=== PATIENT | male | born 1950 | race Caucasian/White ===

== ENCOUNTER 2018-07-16 12:13 | Observation (INO) | payer MEDICARE ==
[~2018-07-16] VITALS: Ht 190.5 cm; Wt 112.5 kg
[2018-07-16] MEDS ORDERED: IPRATROPIUM BROMIDE 0.02% 2.5 ML NEB NEB STA (12:23)
[2018-07-16] MEDS ORDERED: METHYLPREDNISOLONE SOD SUCC 125 MG/2ML VIAL IV STA (12:23)
[2018-07-16] MEDS ORDERED: ALBUTEROL SULF 0.083% NEB SOLN 3 ML NEB NEB STA (12:23)
[2018-07-16] MEDS ORDERED: CEFTRIAXONE SOD 1 GM/NS 50 ML 50 ML IV STA (12:27)
[2018-07-16] MEDS ORDERED: AZITHROMYCIN 500MG/NS 250 ML 250 ML IV STA (12:27)
[2018-07-16] MEDS ORDERED: ASPIRIN 81 MG CHEW TAB PO ONE (12:30)
--- NOTE | 2018-07-16 13:15 | Diagnostic Imaging Report ---
EXAMINATION: PA and lateral views of the chest. COMPARISON: None CLINICAL HISTORY: Cough, shortness of breath DISCUSSION: Lines/tubes: None. Lungs: The lungs are well inflated and clear. No pneumonia or pulmonary edema. Pleura: No pleural effusion or pneumothorax. Heart and mediastinum: The cardiomediastinal silhouette is normal. Bones and soft tissues: No acute bony abnormalities. Remote right-sided rib fractures. IMPRESSION: No acute cardiopulmonary abnormalities. Signed by: Dr. Db Watson M.D. on 07/16/2018 1:11 PM
[2018-07-16 13:34] LABS: BASOPHILS # (AUTO) 0.1 (0.0-0.1); BASOPHILS % 1.3 % (0.0-1.0); EOSINOPHILS # (AUTO) 0.2 (0.0-0.4); EOSINOPHILS % 3.8 % (0.0-6.0); HEMATOCRIT 45.9 % (38.2-49.6); HEMOGLOBIN 15.1 g/dL (14.0-18.0); LYMPHOCYTES # (AUTO) 0.8 (1.0-3.2); LYMPHOCYTES % 15.1 % (18.0-39.1); MEAN CORPUSCULAR HEMOGLOBIN 31.6 pg (28-32); MEAN CORPUSCULAR HGB CONC 32.9 g/dL (31-35); MONOCYTES # (AUTO) 0.3 (0.2-0.8); MONOCYTES % 6.2 % (4.4-11.3); NEUTROPHILS # (AUTO) 3.9 (2.1-6.9); NEUTROPHILS % 73.2 % (38.7-80.0); PLATELET COUNT 282 x10e3/uL (140-360); RED BLOOD COUNT 4.78 x10e6/uL (4.3-5.7); RED CELL DISTRIBUTION WIDTH 13.4 % (11.7-14.4)
[2018-07-16 13:41] LABS: BILIRUBIN,URINE NEGATIVE (NEGATIVE); CLARITY,URINE SL CLOUDY (CLEAR); COLOR,URINE YELLOW (YELLOW); KETONES,URINE TRACE (NEGATIVE); LEUKOCYTE ESTERASE ,URINE NEGATIVE (NEGATIVE); NITRITE,URINE NEGATIVE (NEGATIVE); PROTEIN,URINE DIPSTICK NEGATIVE (NEGATIVE); URINE UROBILINOGEN 0.2 mg/dL (0.2 - 1)
[2018-07-16 13:44] LABS: INR 0.9; PARTIAL THROMBOPLASTIN TIME 30.3 seconds (23.8-35.5); PROTHROMBIN TIME 12.6 seconds (11.9-14.5)
[2018-07-16 13:50] LABS: BACTERIA,URINE MODERATE /HPF; EPITHELIAL CELLS,URINE MANY /LPF; MUCUS,URINE MODERATE (RARE)
[2018-07-16 13:53] LABS: ALANINE AMINOTRANSFERASE 25 IU/L (0-55); ALBUMIN 4.1 g/dL (3.5-5.0); ALKALINE PHOSPHATASE 64 IU/L (40-150); ANION GAP 12.1 mmol/L (8-16); BLOOD UREA NITROGEN 14 mg/dL (7-26); BUN/CREATININE RATIO 16 (6-25); CALCIUM 10.3 mg/dL (8.4-10.2); CARBON DIOXIDE 26 mmol/L (22-29); CHLORIDE 104 mmol/L (98-107); CREATINE KINASE 193 IU/L (30-200); CREATININE, SERUM 0.87 mg/dL (0.72-1.25); EST GLOMERULAR FILTRATION RATE > 60 ML/MIN (60-); GLUCOSE 98 mg/dL (74-118); POTASSIUM 4.1 mmol/L (3.5-5.1); SODIUM 138 mmol/L (136-145)
[2018-07-16 14:11] LABS: B-TYPE NATRIURETIC PEPTIDE2 77.6 pg/mL (0-100)
--- OUTSIDE RECORDS SUMMARY | 2018-07-16 16:55 | XMS REPORT ---
Author Author [facility] Address Unknown Phone Unavailable Care Team Providers Care Curing Finisher Name Role Phone Bernarda CUNHA Unavailable Unavailable Problems This patient has no known problems. Allergies, Adverse Reactions, Alerts This patient has no known allergies or adverse reactions. Medications This patient has no known medications. Results Test Description Test Time Test Comments Text Results Atomic Results Result Comments CHEST 2 VIEWS 2018-07-16 13:11:00 [place] [address] Patient Name: JAZMIN OSWALD MR #: [id number] : 1950 Age/Sex: 68/M Req #: [id number] Adm Physician: Ordered by: SUSAN GUPTA CUPOLA LINER HELPER Report #: [id number] Location: ER Room/Bed: Procedure: [id number] DX/CHEST 2 VIEWS Exam Date: 07/16/18 Exam Time: 1245 REPORT STATUS: Signed EXAMINATION: PA and lateral views of the chest. COMP ARISON: None CLINICAL HISTORY: Cough, shortness of breath DISCUSSION: Lines/tubes: None. Lungs: The lungs are well inflated and clear. No pneumonia or pulmonary edema. Pleura: No pleural effusion or pneumothorax. Heart and mediastinum: The cardiomediastinal silhouette is normal. Bones and soft tissues: No acute bony abnormalities. Remote right-sided rib fractures. IMPRESSION: No acute cardiopulmonary abnormalities. Signed by: Dr. Butch Carpio M.D. on 07/16/2018 1:11 PM Dictated By: BUTCH CARPIO MD [id number] Transcribed By: EVA on 07/16/181310 COPY TO: SUSAN GUPTA NP
[2018-07-16] MEDS ORDERED: AZITHROMYCIN 500MG/NS 250 ML 250 ML IV SCH (18:00)
--- NOTE | 2018-07-16 18:09 | Diagnostic Imaging Report ---
EXAMINATION: CT scan of the chest with contrast. TECHNIQUE: Helical CT images of the chest were performed from the lung apices to the level of the adrenal glands after the intravenous administration of 100 cc of Isovue 300. Coronal and sagittal reformatted images were obtained.Dose modulation, iterative reconstruction, and/or weight based adjustment of the mA/kV was utilized to reduce the radiation dose to as low as reasonably achievable. COMPARISON: None. CLINICAL HISTORY:Chest pain DISCUSSION: LINES/TUBES: None. LUNGS AND AIRWAYS: The lungs are clear. No pulmonary nodules, masses or consolidation. The airways are normal, without endobronchial lesions. PLEURA: No pneumothorax or pleural effusions. HEART AND MEDIASTINUM: The thyroid gland is normal. The heart and pericardium are within normal limits. Coronary artery calcifications. LYMPH NODES: There is no mediastinal, hilar or axillary lymphadenopathy. ABDOMEN: Limited contrast-enhanced views of the upper abdomen show no abnormality within the visualized liver, spleen, pancreas, or kidneys. The adrenal glands are normal. BONES AND SOFT TISSUES: No acute bony abnormalities. IMPRESSION: No acute CT finding. No pulmonary embolism. Signed by: Dr. Db Watson M.D. on 07/16/2018 6:06 PM
[2018-07-16] MEDS ORDERED: SODIUM CHLORIDE 0.9% 50ML 50 ML ONE (18:28)
[2018-07-16] MEDS ORDERED: IOPAMIDOL 370 MG/ML 200 ML INFUS..BTL INJ ONE (18:28)
[2018-07-16] MEDS: ALBUTEROL/IPRATROPIUM 3 ML NEB NEB SCH ×2 (19:00→22:00)
[2018-07-16 20:42] VITALS: BP 133/78
[2018-07-16] MEDS ORDERED: SODIUM CHLORIDE 0.9% 250ML 250 ML ONE (21:06)
[2018-07-16] MEDS: METHYLPREDNISOLONE SOD SUCC 125 MG/2ML VIAL IV SCH (21:21)
[2018-07-16] MEDS: CEFTRIAXONE SOD 1 GM/NS 50 ML 50 ML IV SCH (21:21)
[2018-07-16 23:50] VITALS: BP 133/78
[2018-07-16 23:56] VITALS: BP 133/78
[2018-07-17] VITALS (7 sets, daily range): BP systolic 124–161; BP diastolic 65–82
[2018-07-17] MEDS: ALBUTEROL/IPRATROPIUM 3 ML NEB NEB SCH ×6 (04:00→23:30)
[2018-07-17] MEDS ORDERED: PNEUMOCOCCAL VACCINE POLYVALENT 23 MCG/0.5 ML VIAL IM SCH ×2 (04:34→10:15)
[2018-07-17] MEDS: METHYLPREDNISOLONE SOD SUCC 125 MG/2ML VIAL IV SCH (06:24)
--- NOTE | 2018-07-17 07:00 | NUR ---
Walking rounds done. patient is awake and alertx4. No complaints voiced at this time. He denies SOB or pain. POC discussed. Patient instructed to call for assistance as needed and verbalize understanding.
--- NOTE | 2018-07-17 07:35 | NUR ---
Dr. Shah making rounds.
[2018-07-17 08:37] LABS: CREATINE KINASE MB 3.2 ng/mL (0-5.0)
[2018-07-17] MEDS ORDERED: ACETAMINOPHEN 325 MG TAB PO PRN (08:45)
[2018-07-17] MEDS ORDERED: ONDANSETRON HCL INJ 2MG/ML 2ML 2 MG/ML VIAL IV PRN (08:45)
[2018-07-17] MEDS: CEFTRIAXONE SOD 1 GM/NS 50 ML 50 ML IV SCH ×2 (10:01→21:13)
[2018-07-17] MEDS ORDERED: CEFTRIAXONE SOD 1 GM VIAL IV SCH (12:00)
[2018-07-17] MEDS ORDERED: AZITHROMYCIN 500MG/SOD CHL 0.9% 250ML BAG IV SCH (12:00)
[2018-07-17] MEDS ORDERED: AZITHROMYCIN 500MG/NS 250 ML 250 ML IV SCH (13:00)
[2018-07-17] MEDS: METHYLPREDNISOLONE SOD SUCC 40 MG/ML VIAL 1ML IV SCH ×2 (13:01→21:13)
--- NOTE | 2018-07-17 13:40 | NUR ---
Patient up in chair visiting with sister in NAD and no complaints voiced.
[2018-07-17] MEDS ORDERED: METHYLPREDNISOLONE SOD SUCC 125 MG/2ML VIAL IV SCH (14:00)
--- NOTE | 2018-07-17 14:21 | History and Physical ---
CHIEF COMPLAINT: Cough, congestion, shortness of breath. HISTORY OF PRESENT ILLNESS: This is a 68-year-old male, morbidly obese with no other past medical history, comes into the ED with cough, congestion, wheezing, and shortness of breath ongoing for the last two days. The patient reports that he woke up, had some wheezing and began to be very short of breath. Denies any history of smoking. No oxygen at home. Denies any fever, chest pain, or any other complaints. Reports having some dry cough and congestion. The patient seen and evaluated at bedside on the medical floor. He is currently very stable with no complaints. He was on oxygen, but the patient removed it, states that he does not need it. REVIEW OF SYSTEMS: Pertinent positives: Cough, congestion, wheezing, shortness of breath. Pertinent negatives: Denies any chest pain, palpitation, nausea, vomiting, diarrhea, dysuria, hematuria, frequency, urgency, lightheadedness, dizziness, abdominal pain, headaches, fever, or any other complaints. The rest of 14-point review of systems have been reviewed with the patient and are negative. ALLERGIES: NO KNOWN DRUG ALLERGIES. HOME MEDICATIONS: None. PAST MEDICAL HISTORY: He reports none. PAST SURGICAL HISTORY: None. FAMILY HISTORY: Hypertension and diabetes. SOCIAL HISTORY: No drugs. No alcohol. Does not smoke. Good social support. PHYSICAL EXAMINATION: VITAL SIGNS: Temperature is 96.8, pulse 77, respiratory rate is 18, blood pressure 130/82, and pulse ox 96% on 2 L nasal cannula. GENERAL: Not in acute distress. Alert and oriented x3. Cooperative on examination. HEENT: Head is normocephalic and atraumatic. Eyes; pupils are equal, round, and reactive to light bilaterally. Extraocular movements are intact bilaterally. Throat, no evidence of any erythema or exudates in the posterior pharynx. Has poor dentition. NECK: Supple with good range of motion. PULMONARY: The patient has positive rhonchi throughout. No wheezing, no crackles. Good inspiratory effort. Breathing well. He was on oxygen during my evaluation. CARDIOVASCULAR: Positive S1, S2. No murmurs, rubs, or gallops appreciated. ABDOMEN: Soft, nondistended, and nontender to palpation. Bowel sounds present. MUSCULOSKELETAL: Strength is 5/5 throughout. No evidence of any muscle deficits on examination. No weakness appreciated. NEUROLOGICAL: Cranial nerves 2 through 12 grossly intact. No evidence of any neurological deficits on exam. SKIN: Intact. Warm to touch. Good cap refill. PSYCHIATRIC: Normal affect and mood. EXTREMITIES: No edema. Good range of motion throughout. LAB FINDINGS: Show white count 5.2, hemoglobin 15, hematocrit 45, platelets of 282. Coagulations were normal. Chemistry; sodium 138, potassium 4.1, chloride 104, bicarb 26, anion gap 12, BUN is 14, creatinine is 0.87, glucose 98. Lactic acid 11.4, but normal at this hospital. Calcium 10.3. Total albumin is 2, AST 18, ALT is 25, alkaline phosphatase is 4. CK 193. Troponins were negative. BNP 77. Albumin is 4.1. Urinalysis was negative. Serology, flu was negative. MICROBIOLOGY: Blood and urine cultures are pending. IMAGING STUDIES: Chest x-ray was negative. CT chest PE protocol shows no evidence of pulmonary embolism. No acute findings on CT chest. IMPRESSION: 1. Acute bronchitis with associated cough and congestion. 2. Subjective fever. 3. Hypoxia, currently on nasal cannula. PLAN: At this time, continue with steroids, neb treatments, antibiotic therapy. Imaging studies were found to be negative, so I am going to go ahead and treat him for acute bronchitis picture. He is on antinausea medication, pain control. Encourage ambulation. Discussed with nurse about weaning him off oxygen and if he is doing much better tomorrow, we will discharge him on steroids, neb treatments, and antibiotics. The patient verbalized understanding and agrees with plan of care. Medications were reconciled. MD YESIKA Shabazz/MODL /[id number]
[2018-07-17] MEDS ORDERED: ENOXAPARIN SOD INJ 40 MG/0.4 ML SYR SC SCH (17:00)
[2018-07-17 18:39] LABS: CREATINE KINASE MB 3.9 ng/mL (0-5.0)
--- NOTE | 2018-07-17 19:10 | NUR ---
Report received and walking rounds complete. Pt up walking round his room and in no apparent distress. Pt on room air and tele. All safety measures ensured. Pt encouraged to use call jackson for assistance.
[2018-07-18 00:38] VITALS: BP 132/71
[2018-07-18] MEDS: ALBUTEROL/IPRATROPIUM 3 ML NEB NEB SCH ×3 (03:50→10:57)
[2018-07-18] MEDS: METHYLPREDNISOLONE SOD SUCC 40 MG/ML VIAL 1ML IV SCH (05:39)
[2018-07-18 05:41] VITALS: BP 117/69
[2018-07-18 05:42] LABS: BASOPHILS % 0.1 % (0.0-1.0); HEMATOCRIT 42.1 % (38.2-49.6); HEMOGLOBIN 13.7 g/dL (14.0-18.0); LYMPHOCYTES # (AUTO) 0.6 (1.0-3.2); LYMPHOCYTES % 4.8 % (18.0-39.1); MEAN CORPUSCULAR HEMOGLOBIN 31.5 pg (28-32); MEAN CORPUSCULAR HGB CONC 32.5 g/dL (31-35); MEAN CORPUSCULAR VOLUME 96.8 fL (81-99); MONOCYTES # (AUTO) 0.3 (0.2-0.8); MONOCYTES % 2.7 % (4.4-11.3); NEUTROPHILS % 91.9 % (38.7-80.0); PLATELET COUNT 278 x10e3/uL (140-360); RED BLOOD COUNT 4.35 x10e6/uL (4.3-5.7)
[2018-07-18 06:02] LABS: ANION GAP 15.1 mmol/L (8-16); BLOOD UREA NITROGEN 24 mg/dL (7-26); BUN/CREATININE RATIO 27 (6-25); CALCIUM 9.5 mg/dL (8.4-10.2); CARBON DIOXIDE 24 mmol/L (22-29); CHLORIDE 104 mmol/L (98-107); EST GLOMERULAR FILTRATION RATE > 60 ML/MIN (60-); GLUCOSE 129 mg/dL (74-118); POTASSIUM 4.1 mmol/L (3.5-5.1); SODIUM 139 mmol/L (136-145)
[2018-07-18 07:10] VITALS: BP 127/69
--- NOTE | 2018-07-18 07:25 | NUR ---
report given and walking rounds complete.
[2018-07-18] MEDS: CEFTRIAXONE SOD 1 GM/NS 50 ML 50 ML IV SCH (09:31)
[2018-07-18] MEDS ORDERED: CEFDINIR300 MG PO (09:44)
[2018-07-18] MEDS ORDERED: AZITHROMYCIN250 MG PO (09:45)
[2018-07-18] MEDS ORDERED: PREDNISONE20 MG PO (09:46)
[2018-07-18] MEDS ORDERED: ONDANSETRON HCL 4 MG ORAL DISINTEGRATING TAB PO PRN (10:15)
--- NOTE | 2018-07-18 11:40 | NUR ---
Patient discharge home with written instructions and prescriptions. He verbalized understanding. Sister provided ride home.
--- NOTE | 2018-07-19 07:58 | Discharge Summary ---
FINAL DISCHARGE DIAGNOSES: 1. Acute bronchitis. 2. Cough and congestion, resolved. 3. History of cerebrovascular accident in the past. CONSULTANTS: None. PHYSICAL EXAMINATION: VITAL SIGNS: Temperature 97.2, pulse 74, respiratory rate is 20, blood pressure is 127/69, and pulse ox 93% on room air. LABORATORY FINDINGS: Show white count was 5.3, hemoglobin 13, hematocrit 42, and platelets of 278. Coagulation; PT is 12, INR 0.9, PTT 30. D-dimer 0.74. Chemistry; sodium 139, potassium 4.1, chloride 104, bicarb 24, anion gap of 15, BUN is 24, creatinine is 0.9, glucose is 129. Lactic acid 11.4, but normal at this hospital and within range. Calcium 9.5. Troponins were negative x3. Albumin is 4.1. Urinalysis negative. MICROBIOLOGY: Blood cultures negative. Urine cultures are negative. IMAGING STUDIES: Chest x-ray negative. CT chest shows no evidence of acute findings. No pulmonary embolism. HOSPITAL COURSE: A 68-year-old male comes in with cough, congestion, and underlying acute bronchitis. The patient was admitted for further evaluation. Imaging studies were all negative. CT chest was negative. Chest x-ray was negative. The patient was treated for acute bronchitis on steroids, neb treatments, and antibiotics. The patient was initially on oxygen weaned off to room air. He is currently doing well with no complaints. All labs were found to be within normal range. His troponins were negative. The patient is doing much better prior to being discharged home. The patient was at baseline prior to being discharged. On day of discharge, vital signs stable, labs being stable. The patient seen, evaluated, and examined thoroughly on the day of discharge with no other complaints. The patient verbalized understanding and agrees to plan of care to followup appointment as an outpatient with the primary care physician in 1 week. MEDICATIONS: See med reconciliation form including Omnicef for 10 days, azithromycin for 5 days, and prednisone for 5 days. CONDITION: Stable. DIET: Heart healthy. In the event of any worsening symptoms, the patient was advised to come back to the ED for further evaluation. Discharge summary took greater than 35 minutes. MD YESIKA Shabazz/MARSHALL /[id number]
== END 2018-07-18 11:50 | disposition home or self-care (01) ==
LOC: ER 12:13 → ERHOLD 16:52 → IMCU 18:38
PROVIDERS: ADMIT Internal Medicine; ATTEND Internal Medicine
DX: J20.9 Acute bronchitis, unspecified (principal); Z86.73 Personal history of transient ischemic attack (TIA), and cerebral infarction without residual deficits; R09.02 Hypoxemia; J45.909 Unspecified asthma, uncomplicated
CPT/HCPCS: 36415 ×3; 71046; 71260; 80048; 80053; 81001; 82550 ×2; 82553 ×2; 83605; 83880; 84484 ×2; 85025 ×2; 85379; 85610; 85730; 87040; 87086; 87400; 90732; 93005; 94640 ×6; 99284; G0378 ×3; J0456 ×2; J0696 ×3; J1650; J2920 ×2; J2930 ×2; J7050; Q9967